=== PATIENT | male | born 1960 | race Caucasian/White ===

== ENCOUNTER 2019-09-20 08:30 | Outpatient (REF) | payer SELFPAY ==
[2019-09-20 19:41] LABS: Abs Immature Grans 0.02 k/cumm (0.0-0.09); Absolute Basophil Count 0.09 k/cumm (0.0-0.2); Absolute Eosinophil Count 0.26 k/cumm (0.0-0.7); Absolute Lymphocyte Count 2.25 k/cumm (1.2-3.4); Absolute Monocyte Count 0.82 k/cumm (0.11-0.7); Absolute Neutrophil Count 5.46 k/cumm (1.2-6.7); Eosinophils % 2.9; HCT 47.8 % (40.0-50.0); Immature Grans % 0.2 %; Lymphocytes % 25.3; Mean Corp. HGB Concentration 33.5 g/dL (32.0-36.0); Mean Corpuscular Hemoglobin 29.1 pg (27.0-33.0); Mean Corpuscular Volume 86.9 fL (80-95); Mean Platelet Volume 9.9 fL (8.0-11.0); Monocytes % 9.2; Neutrophils % 61.4; Platelet Count 314 x1000/uL (130-400)
[2019-09-20 20:01] LABS: ALT 52 U/L (16-63); AST 31 U/L (15-37); Alkaline Phosphatase 103 U/L (46-116); Anion Gap 7.3 mmol/L (3-11); BUN 21 mg/dL (7-18); Bilirubin, Total 0.5 mg/dL (0.2-1.0); CO2 28.7 mmol/L (21.0-32.0); CREATININE 1.16 mg/dL (0.70-1.30); Chloride 102 mmol/L (98-107); Glucose 139 mg/dL (74-106); Potassium 4.3 mmol/L (3.5-5.1); Sodium 138 mmol/L (136-145); TSH (W/Ref FT4) 1.26 uIU/mL (0.36-3.74); Total Protein 6.6 g/dL (6.4-8.2)
[2019-09-20 20:11] LABS: Calculated LDL 94 mg/dL (<100); Cholesterol 155 mg/dL (<200); HDL Cholesterol 48 mg/dL (40-60); Triglyceride 66 mg/dL (<150)
[2019-09-21 17:52] LABS: Hemoglobin A1C 6.2 % (3.8-5.6)
== END 2019-09-20 08:50 ==
LOC: NCHCN 08:30
PROVIDERS: Visit Provider Physician Assistant
DX: I10 Essential (primary) hypertension (principal); F41.1 Generalized anxiety disorder; I25.10 Atherosclerotic heart disease of native coronary artery without angina pectoris; G47.00 Insomnia, unspecified; G89.29 Other chronic pain; R73.9 Hyperglycemia, unspecified
CPT/HCPCS: 80053; 80061; 83036; 84443; 85025

== ENCOUNTER 2020-05-29 17:08 | Outpatient (REF) | payer SELFPAY ==
[2020-05-29 18:55] LABS: Abs Immature Grans 0.03 10^3/uL (0.0-0.06); Absolute Basophil Count 0.07 10^3/uL (0.0-0.2); Absolute Eosinophil Count 0.04 10^3/uL (0.0-0.7); Absolute Lymphocyte Count 2.24 10^3/uL (1.2-3.4); Absolute Monocyte Count 0.89 10^3/uL (0.1-0.8); Absolute Neutrophil Count 6.85 10^3/uL (1.2-6.7); Basophils % 0.7; Eosinophils % 0.4; HCT 50.7 % (40.0-50.0); HGB 17.8 g/dL (13.5-17.5); Immature Grans % 0.3; Lymphocytes % 22.1; MCH 29.4 pg (27.0-33.0); MCHC 35.1 % (32.0-36.0); MCV 83.7 fL (80-95); MPV 10.7 fL (8.0-11.0); Monocytes % 8.8; Neutrophils % 67.7; Nucleated RBC 0 %; Platelet Count 237 10^3/uL (130-400); RBC 6.06 10^6/uL (4.36-5.78); RDW 10.9 % (11.8-14.1); RDW-SD 33.5 fL; WBC 10.12 10^3/uL (4.4-10.8)
[2020-05-29 19:20] LABS: ALT 25 U/L (16-63); AST 21 U/L (15-37); Albumin 3.9 g/dL (3.4-5.0); Alkaline Phosphatase 83 U/L (46-116); Anion Gap 12.1 mmol/L (3-11); BUN 15 mg/dL (7-18); Bilirubin, Total 0.8 mg/dL (0.2-1.0); CO2 25.9 mmol/L (21.0-32.0); CREATININE 0.9 mg/dL (0.70-1.30); Calcium 9.2 mg/dL (8.5-10.1); Chloride 96 mmol/L (98-107); Glucose 109 mg/dL (74-106); Potassium 3.9 mmol/L (3.5-5.1); Sodium 134 mmol/L (136-145); Total Protein 6.6 g/dL (6.4-8.2)
== END 2020-05-29 17:09 | disposition home or self-care (01) ==
LOC: NCHCN 17:08
PROVIDERS: PCP Physician Assistant; Visit Provider Physician Assistant
DX: R11.2 Nausea with vomiting, unspecified (principal)
CPT/HCPCS: 80053; 85025

== ENCOUNTER 2022-04-30 12:48 | Outpatient (REF) | payer SELFPAY ==
[2022-04-30 19:27] LABS: Abs Immature Grans 0.06 10^3/uL (0.0-0.06); Absolute Basophil Count 0.09 10^3/uL (0.0-0.2); Absolute Eosinophil Count 0.55 10^3/uL (0.0-0.7); Absolute Lymphocyte Count 1.68 10^3/uL (1.2-3.4); Absolute Monocyte Count 1.25 10^3/uL (0.1-0.8); Absolute Neutrophil Count 9.83 10^3/uL (1.2-6.7); Basophils % 0.7; Eosinophils % 4.1; HCT 43.9 % (40.0-50.0); HGB 14.5 g/dL (13.5-17.5); Immature Grans % 0.4; Lymphocytes % 12.5; MCH 27.4 pg (27.0-33.0); MCV 83 fL (80-95); MPV 9.5 fL (8.0-11.0); Monocytes % 9.3; Platelet Count 443 10^3/uL (130-400); RBC 5.29 10^6/uL (4.36-5.78); RDW 13.9 % (11.8-14.1); RDW-SD 42.3 fL; WBC 13.46 10^3/uL (4.4-10.8)
[2022-04-30 19:43] LABS: ALT 21 U/L (16-63); AST 15 U/L (15-37); Albumin 3.2 g/dL (3.4-5.0); Alkaline Phosphatase 136 U/L (46-116); Anion Gap 6.1 mmol/L (3-11); BUN 14 mg/dL (7-18); Bilirubin, Total 0.3 mg/dL (0.2-1.0); CO2 28.9 mmol/L (21.0-32.0); CREATININE 0.7 mg/dL (0.70-1.30); Calcium 8.9 mg/dL (8.5-10.1); Calculated LDL 115 mg/dL (<100); Chloride 96 mmol/L (98-107); Cholesterol 185 mg/dL (<200); Estimated GFR 103.53 (mL/min/1.73m2); Glucose 126 mg/dL (74-106); HDL Cholesterol 55 mg/dL (40-60); Potassium 4.4 mmol/L (3.5-5.1); Sodium 131 mmol/L (136-145); TSH (W/Ref FT4) 1.79 uIU/mL (0.36-3.74); Total Protein 6.1 g/dL (6.4-8.2); Triglyceride 75 mg/dL (<150)
[2022-05-02 14:28] LABS: Hemoglobin A1C 6.5 % (<5.7)
== END 2022-04-30 12:49 | disposition home or self-care (01) ==
LOC: NCHCN 12:48
PROVIDERS: PCP Physician Assistant; Visit Provider Physician Assistant
DX: I10 Essential (primary) hypertension (principal); R73.03 Prediabetes; R06.02 Shortness of breath; R19.7 Diarrhea, unspecified; R10.32 Left lower quadrant pain
CPT/HCPCS: 80053; 80061; 83036; 84443; 85025

== ENCOUNTER 2022-05-02 18:47 | Outpatient (REF) | payer OTHER, SELFPAY ==
[2022-05-03 23:09] LABS: Campylobacter PCR Negative (Negative); Salmonella PCR Negative (Negative); Shiga Toxin PCR Negative (Negative); Shigella/Enteroinvasive Ecoli Negative (Negative)
== END 2022-05-02 18:48 | disposition home or self-care (01) ==
LOC: NCHCN 18:47
PROVIDERS: PCP Physician Assistant; Visit Provider Physician Assistant
DX: R10.32 Left lower quadrant pain (principal); R19.7 Diarrhea, unspecified; R11.10 Vomiting, unspecified
CPT/HCPCS: 87329; 87493; 87505; 87177